=== PATIENT | female | born 1965 | race Caucasian/White ===

== ENCOUNTER → 2023-02-28 09:59 | Outpatient (BNVA) | payer OTHER, SELFPAY | PROVIDERS: PCP Internal Medicine; Visit Provider Internal Medicine Rheumatology | DX: Z79.899 Other long term (current) drug therapy (principal); M19.90 Unspecified osteoarthritis, unspecified site; Z11.59 Encounter for screening for other viral diseases; Z11.1 Encounter for screening for respiratory tuberculosis; M06.9 Rheumatoid arthritis, unspecified; R76.8 Other specified abnormal immunological findings in serum; M17.11 Unilateral primary osteoarthritis, right knee; M21.612 Bunion of left foot | CPT/HCPCS: 36415; 73130; 73630; 80076; 82306; 82565; 83520; 85025; 85651; 86140; 86160; 86162; 86200; 86235; 86255; 86376; 86431; 86480; 86803 ==